=== PATIENT | female | born 1990 | race Caucasian/White ===

== ENCOUNTER 2016-09-27 15:53 | Emergency (ER) | payer MEDICAID, OTHER ==
[2016-09-27 17:21] LABS: URINE APPEARANCE CLEAR; URINE BILIRUBIN NEGATIVE (NEGATIVE); URINE BLOOD NEGATIVE (NEGATIVE); URINE COLOR YELLOW; URINE GLUCOSE (UA) NEGATIVE (NEGATIVE); URINE LEUKOCYTE ESTERASE NEGATIVE (NEGATIVE); URINE NITRITE NEGATIVE (NEGATIVE); URINE PROTEIN NEGATIVE (NEGATIVE); URINE UROBILINOGEN NEGATIVE (0-1 mg/dl)
[2016-09-27 17:29] LABS: SPECIFIC GRAVITY 1.025 (1.001-1.030)
--- NOTE | 2016-09-27 18:11 | US ---
OB COMP <14 WKS, OB TRANSVAGINAL HISTORY: Cramping and spotting for one week. The patient is , expected to be at 5 weeks 6 days gestational age. COMPARISONS: None. FINDINGS: Transabdominal and transvaginal ultrasonography was performed demonstrating an intrauterine fluid collection. The mean diameter of the collection measures 1.03 cm, equivalent to a gestational age of 5 weeks 1 day. There is a visible yolk sac suggested, though a pole is not observed. No adjacent fluid collections are identified. The maternal right ovary measures 3.7 x 2.4 x 4.3 cm. The left ovary measures 2.3 x 3.5 x 3.7 cm. A 1.5 cm dominant follicle is seen within the maternal right ovary. No pelvic free fluid is visualized. IMPRESSION: 1. Findings most consistent with a single intrauterine gestation with mean gestational age 5 weeks 1 day producing a sonographic EDC of 05/29/2017. There is a visible yolk sac though a pole is not yet observed. 2. A 1.5 cm dominant follicle within the maternal right ovary. No pelvic free fluid is visualized.
== END 2016-09-27 19:03 | disposition home or self-care (01) ==
LOC: ED 15:53
DX: O20.0 Threatened abortion (principal); Z3A.01 Less than 8 weeks gestation of pregnancy